=== PATIENT | female | born 1975 | race Caucasian/White ===

== ENCOUNTER 2016-12-02 16:33 | Emergency (ER) | payer OTHER ==
[~2016-12-02] VITALS: Ht 157.5 cm; Wt 77.1 kg
[2016-12-02 17:07] LABS: BASOPHIL % 0.1 % (0.0-0.2); EOSINOPHIL % 0.1 % (0.0-5.0); HEMOGLOBIN 14.3 g/dL (12.0-15.0); LYMPHOCYTES # 1.5 10^3/uL (1.0-4.8); LYMPHOCYTES % 10.7 % (24.0-44.0); MEAN CELL HGB 29.5 pg (26-34); MEAN CELL HGB CONCENTRATION 32.9 g/dL (33-37); MEAN CORP VOLUME 89.9 fL (78-100); MEAN PLATELET VOLUME 10.4 fL (7.8-11.0); MONOCYTES # 0.8 10^3/uL (0.3-0.8); MONOCYTES % 5.4 % (5.0-12.0); NEUTROPHIL # 11.5 10^3/uL (1.8-7.7); NEUTROPHILS % 83.6 % (41.0-85.0); RED CELL DISTRIBUTION WIDTH 12.9 % (11.5-14.5); WHITE BLOOD CELL 13.8 10^3/uL (4.5-11.0)
[2016-12-02] MEDS ORDERED: ZOFRAN IV STA (17:15)
[2016-12-02] MEDS ORDERED: ZOFRAN ONE (17:21)
[2016-12-02] MEDS ORDERED: NS 1000ML 1,000 ML ONE (17:21)
[2016-12-02] MEDS ORDERED: NS 1000ML 1,000 ML IV ONE (17:30)
[2016-12-02 17:32] LABS: CALCIUM 9.6 mg/dL (8.4-10.5); CARBON DIOXIDE 21.6 mmol/L (20.0-32)
[2016-12-02 18:54] LABS: BILIRUBIN,URINE NEGATIVE (NEGATIVE)
[2016-12-02 18:55] LABS: APPEARANCE,URINE SLIGHTLY HAZY (CLEAR); UA COLOR YELLOW (YELLOW)
[2016-12-02] MEDS ORDERED: PYRIDIUM PO STA (19:28)
[2016-12-02] MEDS ORDERED: BACTRIM DS PO STA (19:28)
--- NOTE | 2016-12-02 19:38 | ER.PDOC ---
General Chief Complaint: Nausea,Vomiting,Diarrhea Stated Complaint: N/V Time seen by MD: 16:45 Source: patient, family Exam Limitations: no limitations History of Present Illness Initial Comments pt has had nausea& vomiting since 3 days ago Timing/Duration: other (4 days) Severity/Quality: moderate Abdominal Pain Onset Location: Unknown Associated Symptoms (vomiting): freq vomitng Associated Symptoms (diarrhea): mild Prior symptoms/Treatment: No Similar symptoms previous, No Recenly Seen, No Treated by Doctor, No Recently Hospitalized Allergies: Coded Allergies: topiramate (Verified Allergy, Intermediate, 12/02/16) Vital Signs First Vital Signs Date Time Temp Pulse Resp B/P (MAP) Pulse Ox O2 Delivery O2 Flow Rate FiO2 12/02/16 16:42 98.0 89 18 100 12/02/16 16:45 142/83 (102) Last Vital Signs Date Time Temp Pulse Resp B/P (MAP) Pulse Ox O2 Delivery O2 Flow Rate FiO2 12/02/16 16:45 98.0 89 18 142/83 (102) 100 Past Medical History Medical History: other (seizure disorder) Surgical History: colectomy, , hysterectomy, tubal LMP (females 10-50): hysterectomy Family History Significant Family History: no pertinent family hx Social History Smoking: non-smoker Alcohol Use: rarely Drug Use: none Reviewed Nursing Reviewed: Vital Signs, Abn. Noted, Nursing Assessment Constitutional: no symptoms reported, denies see HPI, denies chills, denies diaphoresis, denies fever, denies malaise, denies weakness, denies other EENTM: denies no symptoms reported, denies see HPI, denies eye pain, denies blurred vision, denies tearing, denies double vision, denies ear pain, denies ear discharge, denies nose pain, denies nose congestion, denies throat pain, denies throat swelling, denies mouth pain, denies mouth swelling, denies other Respiratory: denies no symptoms reported, denies see HPI, denies cough, denies orthopnea, denies shortness of breath, denies SOB with exertion, denies SOB at rest, denies stridor, denies wheezing, denies other Cardiovascular: denies no symptoms reported, denies see HPI, denies chest pain , denies edema, denies irregular heart rate, denies lightheadedness, denies palpitations, denies syncope, denies other Gastrointestinal: see HPI, diarrhea Genitourinary: denies no symptoms reported, denies see HPI, denies burning, denies dysuria, denies discharge, denies frequency, denies flank pain, denies hematuria, denies incontinence, denies pain, denies urgency, denies other Musculoskeletal: denies no symptoms reported, denies see HPI, denies back pain , denies gout, denies joint pain, denies joint swelling, denies muscle pain, denies muscle stiffness, denies neck pain, denies other Skin: denies no symptoms reported, denies see HPI, denies change in color, denies change in hair/nails, denies dryness, denies lesions, denies lumps, denies rash, denies other Psychiatric/Neurological: other (seizure) Endocrine: denies no symptoms reported, denies see HPI, denies excessive sweating, denies flushing, denies intolerance to cold, denies intolerance to heat, denies increased hunger, denies increased thrist, denies increased urine, denies unexplained weight gain, denies unexplaned weight loss, denies other Hematologic/Lymphatic: denies no symptoms reported, denies see HPI, denies anemia, denies blood clots, denies easy bleeding, denies easy bruising, denies swollen glands, denies other All Other Systems: Reviewed and Negative Physical Exam General Appearance: Mild Distress HEENT: PERRL/EOMI, Normal ENT Inspection, TMs Normal, Pharynx Normal, Other ( oral mucosa dry, lips chapped) Neck: Non-Tender, Full Range of Motion, Supple, Normal Inspection Respiratory: chest non-tender, lungs clear, normal breath sounds, no respiratory distress, no accessory muscle use Cardiovascular: Normal Peripheral Pulses, Regular Rate, Rhythm, No Edema, No Gallop, No JVD, No Murmur Gastrointestinal: Normal Bowel Sounds, Non Tender, Soft Back: Normal Inspection, No CVA Tenderness, No Vertebral Tenderness Extremities: Normal Range of Motion, Non-Tender, Normal Inspection, No Pedal Edema, No Calf Tenderness, Normal Capillary Refill, Pelvis Stable 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, No Motor/Sensory Deficits, Alert, Normal Mood/Affect, Oriented x 3 Skin: Normal Color, Warm/Dry Lymphatic: No Adenopathy Results/Orders Results/Orders Laboratory Tests Test 12/02/16 16:47 12/02/16 16:56 Urine Collection Type VOID Urine Color YELLOW (YELLOW) Urine Appearance SLIGHTLY HAZY (CLEAR) Urine Bilirubin NEGATIVE MG/DL (NEGATIVE) Urine Ketones 150 mg/dL (NEGATIVE) Urine Specific [place] 1.020 (1.005-1.035) Urine pH 6 (5.0-6.0) Urine Protein 15 mg/dL (NEGATIVE) Urine Urobilinogen 1.0 (NEGATIVE) Urine Nitrate NEGATIVE (NEGATIVE) Urine Leukocyte Esterase 100/ul 1+ (NEGATIVE) Urine Blood 10 TR (NEGATIVE) Urine RBC 0-2 RBC/HPF (NONE SEEN) Urine WBC 2-5 WBC/HPF (0-2) Urine Squamous Epithelial Cells FEW #/HPF (FEW) Urine Bacteria RARE (NONE SEEN) Urine Other 4+ MUCUS #/HPF Urine Glucose NORMAL (NEGATIVE) Ketones LARGE (NEGATIVE) White Blood Count 13.8 10^3/uL (4.5-11.0) Red Blood Count 4.84 10^6/uL (4.00-5.20) Hemoglobin 14.3 g/dL (12.0-15.0) Hematocrit 43.5 % (36.0-46.0) Mean Corpuscular Volume 89.9 fL (78-100) Mean Corpuscular Hemoglobin 29.5 pg (26-34) Mean Corpuscular Hemoglobin Concent 32.9 g/dL (33-37) Red Cell Distribution Width 12.9 % (11.5-14.5) Platelet Count 283 10^3/uL (150-400) Mean Platelet Volume 10.4 fL (7.8-11.0) Neutrophils (%) (Auto) 83.6 % (41.0-85.0) Lymphocytes (%) (Auto) 10.7 % (24.0-44.0) Monocytes (%) (Auto) 5.4 % (5.0-12.0) Neutrophils # (Auto) 11.5 10^3/uL (1.8-7.7) Lymphocytes # (Auto) 1.5 10^3/uL (1.0-4.8) Monocytes # (Auto) 0.8 10^3/uL (0.3-0.8) Absolute Immature Granulocyte (auto 0.02 10^3 u/L (0-2) Eosinophils % 0.1 % (0.0-5.0) Basophils % 0.1 % (0.0-0.2) Basophils # 0.0 10^3/uL (0.0-0.1) Eosinophil Count 0.0 10^3/uL (0.0-0.2) Sodium Level 139 mmol/L (132-145) Potassium Level 3.2 mmol/L (3.6-5.2) Chloride Level 102.0 mmol/L (96-109) Carbon Dioxide Level 21.6 mmol/L (20.0-32) Anion Gap 18.6 Blood Urea Nitrogen 20 mg/dL (7-18) Creatinine 0.92 mg/dL (0.59-1.40) Estimated GFR () 81.8 (>/=60) BUN/Creatinine Ratio 21.0 Glucose Level 107 mg/dL (70-110) Calcium Level 9.6 mg/dL (8.4-10.5) Total Bilirubin 0.8 mg/dL (0.2-1.0) Aspartate Amino Transf (AST/SGOT) 15 U/L (0-35) Alanine Aminotransferase (ALT/SGPT) 21 U/L (12-78) Alkaline Phosphatase 109 U/L (50-136) Total Protein 8.2 g/dL (6.4-8.2) Albumin 4.0 g/dL (3.4-5.0) Globulin 4.2 Amylase Level 38 U/L (25-115) Lipase 95 U/L (114-286) Serum HCG, Qualitative NEGATIVE (NEGATIVE) Percent Immature Gran (Cell Imm) 0.10 % (0.00-0.50) Administered Medications Medications (Trade) Dose Ordered Sig/Shelbi Route PRN Reason Start Time Stop Time Status Last Admin Dose Admin Ondansetron HCl (Zofran) 4 mg STAT STAT IV 12/02/16 17:15 12/02/16 17:16 DC 12/02/16 17:29 Sodium Chloride 0 ml @ 999 mls/hr Q0M ONCE IV 12/02/16 17:30 12/02/16 17:31 DC 12/02/16 17:29 Progress Progress discussed labs, has uti will start Bactrim, pyridium Departure Time of Disposition: 19:42 Disposition: 01 HOME, SELF-CARE Impression: Primary Impression: Urinary tract infection Qualified Codes: N30.00 - Acute cystitis without hematuria Condition: Improved Referrals: PCP,UNKNOWN (PCP) PRIMARY CARE PROVIDER EMMETT CISSE MD Dec 02, 2016 19:38
[2016-12-02] MEDS ORDERED: PYRIDIUM PO ONE (19:44)
[2016-12-02] MEDS ORDERED: BACTRIM DS ONE (19:44)
--- NOTE | 2016-12-02 19:55 | NUR ---
IV DC'D TIP INTACT, NO BLEEDING
[2016-12-02 19:59] VITALS: BP 142/83
[2016-12-03] MEDS ORDERED: NS 1000ML 1,000 ML IV ONE (17:14)
== END 2016-12-02 19:56 | disposition home or self-care (01) ==
LOC: ER 16:33
DX: N39.0 Urinary tract infection, site not specified (principal); G40.909 Epilepsy, unspecified, not intractable, without status epilepticus; R19.7 Diarrhea, unspecified; R11.10 Vomiting, unspecified; Z88.8 Allergy status to other drugs, medicaments and biological substances; Z90.49 Acquired absence of other specified parts of digestive tract
CPT/HCPCS: 36415; 80053; 81000; 82150; 83690; 84703; 85025; 87086; 96361; 96374; 99285; J2405; J7030

== ENCOUNTER 2016-12-04 21:54 | Emergency (ER) | payer OTHER ==
[~2016-12-04] VITALS: Ht 165.1 cm; Wt 77.1 kg
--- NOTE | 2016-12-04 23:52 | ER.PDOC ---
General Chief Complaint: Flank Pain Stated Complaint: UTI ISSUE Time seen by MD: 23:49 Source: patient Exam Limitations: no limitations History of Present Illness Initial Comments Bilateral flank pain, nausea/vomiting for 5 days. Seen in the ED 3 days ago. Severity/Quality: moderate Radiation: no radiation Associated Symptoms: nausea/vomiting Exacerbated by: nothing Relieved By: nothing Allergies: Coded Allergies: topiramate (Verified Allergy, Intermediate, 12/02/16) Vital Signs First Vital Signs Date Time Temp Pulse Resp B/P (MAP) Pulse Ox O2 Delivery O2 Flow Rate FiO2 12/04/16 22:47 98.1 77 16 98 Last Vital Signs Date Time Temp Pulse Resp B/P (MAP) Pulse Ox O2 Delivery O2 Flow Rate FiO2 12/04/16 22:47 98.1 77 16 98 Past Medical History Medical History: GERD, thyroid disease Surgical History: cholecystectomy, hysterectomy, tubal LMP (females 10-50): hysterectomy Social History Smoking: non-smoker Alcohol Use: none Drug Use: none Constitutional: no symptoms reported Respiratory: no symptoms reported Cardiovascular: no symptoms reported Gastrointestinal: see HPI Genitourinary: see HPI Musculoskeletal: no symptoms reported All Other Systems: Reviewed and Negative Physical Exam General Appearance: No Apparent Distress Neck: Non-Tender, Full Range of Motion, Supple, Normal Inspection Respiratory: chest non-tender, lungs clear, normal breath sounds, no respiratory distress, no accessory muscle use Cardiovascular: Normal Peripheral Pulses, Regular Rate, Rhythm, No Edema, No Gallop, No JVD, No Murmur Gastrointestinal: Normal Bowel Sounds, No Organomegaly, No Pulsatile Mass, Tenderness (Lower abdomen) Back: CVA Tenderness (R), CVA Tenderness (L) Extremities: Normal Range of Motion, Non-Tender, Normal Inspection, No Pedal Edema, No Calf Tenderness, Normal Capillary Refill, Pelvis Stable 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 EKG/XRAY/CT/US CT Comments: Cystic enlargement of right adnexa, nothing acute Course Blood Pressure Systolic: 148 Blood Pressure Diastolic: 67 Blood Pressure Mean: 94 Departure Time of Disposition: :16 Disposition: 01 HOME, SELF-CARE Impression: Primary Impression: UTI (urinary tract infection) Additional Impressions: Gastroenteritis Hypokalemia Condition: Stable Referrals: PCP,UNKNOWN (PCP) PRIMARY CARE PROVIDER Additional Instructions: KCL tabs Nitrofurantoin Continue Zofran at home Start feeding with clear liquids and advance diet as tolerated F/U with your PCP in 2-3 days Problem Qualifiers Primary Impression: UTI (urinary tract infection) Urinary tract infection type: site unspecified Hematuria presence: without hematuria Qualified Codes: N39.0 - Urinary tract infection, site not specified ADELSO ALFARO MD Dec 04, 2016 23:52
[2016-12-04 23:58] LABS: BASOPHIL % 0.4 % (0.0-0.2); EOSINOPHIL # 0.1 10^3/uL (0.0-0.2); EOSINOPHIL % 1.3 % (0.0-5.0); HEMOGLOBIN 13.6 g/dL (12.0-15.0); LYMPHOCYTES # 2.1 10^3/uL (1.0-4.8); LYMPHOCYTES % 22.1 % (24.0-44.0); MEAN CELL HGB CONCENTRATION 33.5 g/dL (33-37); MEAN CORP VOLUME 89.6 fL (78-100); MEAN PLATELET VOLUME 10.4 fL (7.8-11.0); MONOCYTES # 0.9 10^3/uL (0.3-0.8); MONOCYTES % 9.8 % (5.0-12.0); NEUTROPHIL # 6.2 10^3/uL (1.8-7.7); NEUTROPHILS % 66.3 % (41.0-85.0); RED CELL DISTRIBUTION WIDTH 12.9 % (11.5-14.5); WHITE BLOOD CELL 9.3 10^3/uL (4.5-11.0)
[2016-12-05 00:14] LABS: CALCIUM 9.5 mg/dL (8.4-10.5); CARBON DIOXIDE 22.7 mmol/L (20.0-32)
[2016-12-05 00:23] LABS: BILIRUBIN,URINE 6 MG/DL (NEGATIVE)
[2016-12-05 00:48] LABS: APPEARANCE,URINE SLIGHTLY CLOUDY (CLEAR); UA COLOR ORANGE (YELLOW)
--- NOTE | 2016-12-05 00:49 | DIREP ---
PROCEDURE:CT ABDOMEN/PELVIS W/O CONTRAST COMPARISON:None. INDICATIONS:BLQ AND FLANK PAIN, NO HX STONES TECHNIQUE:Axial images were created through the abdomen and pelvis without intravenous contrast material. No oral contrast was administered. Sagittal and coronal reconstructions were performed from source images. The study was reviewed on abdominal, lung, liver and bone windows. FINDINGS: LUNG BASES:Normal. No visible pulmonary or pleural disease. LIVER:Normal. No significant liver lesions are identified. BILIARY:Status post cholecystectomy. PANCREAS:Normal. No lesion, fluid collection, ductal dilatation, or atrophy. SPLEEN:Normal. No enlargement or focal lesion. ADRENALS:Normal. No mass or enlargement. URINARY TRACT:No radiopaque stones are seen. Slightly increased density of the calices identified, question [id number]/nephrocalcinosis. No bulmaro lesions are identified. No hydronephrosis is seen. AORTA/VASCULAR:Normal. No aneurysm. RETROPERITONEUM:Normal. No mass or adenopathy. BOWEL/MESENTERY:Normal. There is no intestinal obstruction, free fluid, free air or mesenteric inflammatory changes. The appendix is questionably visualized on images number 76 through 83. The appendix is also visualized on coronal image number 45 series 8031. No acute appendicitis, diverticulitis, free air or free fluid is seen. Significant retained fecal matter in the colon. Calcium containing medications identified in the distal stomach as seen on image number 28, series 2. ABDOMINAL WALL:Normal. No mass or hernia. PELVIC ORGANS:Cystic enlargement of the right adnexa measuring 3.6 x 2.6 cm in size. Left adnexa is satisfactory, measuring 2.5 x 1.3 cm in size, recommend a follow-up pelvic sonogram. Phleboliths in the pelvis. BONES:Normal for age. No bony lesion or acute fracture. OTHER:Negative. CONCLUSION:No acute appendicitis, diverticulitis is seen. Status post cholecystectomy. Cystic enlargement of the right adnexa, dimensions as above. Recommend a follow-up pelvic sonogram. No renal stones or hydronephrosis is seen. Dictated by: Ulices Lee MD on 12/05/2016 at 00:45 AM
[2016-12-05] MEDS ORDERED: KLOR-CON 10 PO STA (01:13)
[2016-12-05] MEDS ORDERED: ROCEPHIN IM IM STA (01:13)
[2016-12-05] MEDS ORDERED: KLOR-CON 10 PO ONE (01:15)
[2016-12-05] MEDS ORDERED: ROCEPHIN ONE (01:15)
[2016-12-05 01:41] VITALS: BP 139/82
== END 2016-12-05 01:40 | disposition home or self-care (01) ==
LOC: ER 21:54
DX: N39.0 Urinary tract infection, site not specified (principal); K52.9 Noninfective gastroenteritis and colitis, unspecified; E87.6 Hypokalemia; E07.9 Disorder of thyroid, unspecified; K21.9 Gastro-esophageal reflux disease without esophagitis; Z88.8 Allergy status to other drugs, medicaments and biological substances
CPT/HCPCS: 36415; 74176; 80053; 81000; 83690; 85025; 87086; 96372; 99285; J0696; J3480

== ENCOUNTER 2017-02-05 16:07 | Emergency (ER) | payer OTHER ==
[~2017-02-05] VITALS: Ht 165.1 cm; Wt 81.6 kg
[2017-02-05] MEDS ORDERED: NEURONTIN PO STA (17:00)
[2017-02-05] MEDS ORDERED: ZOFRAN ODT SL STA (17:00)
[2017-02-05] MEDS ORDERED: NS 1000ML 1,000 ML IV ONE (17:00)
[2017-02-05 17:35] LABS: BASOPHIL % 0.2 % (0.0-0.2); EOSINOPHIL % 0.4 % (0.0-5.0); HEMOGLOBIN 13.9 g/dL (12.0-15.0); LYMPHOCYTES % 20.8 % (24.0-44.0); MEAN CELL HGB 29.1 pg (26-34); MEAN CELL HGB CONCENTRATION 33.7 g/dL (33-37); MEAN CORP VOLUME 86.6 fL (78-100); MEAN PLATELET VOLUME 10.6 fL (7.8-11.0); MONOCYTES # 0.7 10^3/uL (0.3-0.8); MONOCYTES % 7.6 % (5.0-12.0); NEUTROPHIL # 6.8 10^3/uL (1.8-7.7); NEUTROPHILS % 70.9 % (41.0-85.0); RED CELL DISTRIBUTION WIDTH 12.5 % (11.5-14.5); WHITE BLOOD CELL 9.7 10^3/uL (4.5-11.0)
[2017-02-05] MEDS ORDERED: NS 1000ML 1,000 ML ONE (17:35)
[2017-02-05] MEDS ORDERED: NEURONTIN ONE (17:36)
[2017-02-05] MEDS ORDERED: ZOFRAN ODT ONE (17:36)
[2017-02-05 17:41] LABS: CALCIUM 9.5 mg/dL (8.4-10.5); CARBON DIOXIDE 20.1 mmol/L (20.0-32)
[2017-02-05 19:15] LABS: BILIRUBIN,URINE NEGATIVE (NEGATIVE); UROBILINOGEN,URINE NORMAL (NEGATIVE)
[2017-02-05 19:23] LABS: APPEARANCE,URINE CLOUDY (CLEAR); UA COLOR YELLOW (YELLOW)
[2017-02-05] MEDS ORDERED: CIPRO ONE ×2 (19:29→19:30)
[2017-02-05 19:30] LABS: YEAST,URINE RARE
--- NOTE | 2017-02-05 19:31 | ER.PDOC ---
General Chief Complaint: Abdomen Pain Stated Complaint: AB PAIN,NAUSEA,VOMIT,DIARRHEA Time seen by MD: 17:16 Source: patient History of Present Illness Initial Comments pt has developed nausea and vomiting and has not been able to keep meds down, has hx of epilepsy and suffered 2 seizures. Timing/Duration: 24 hours Severity/Quality: moderate Radiation: no radiation Associated Symptoms: fever/chills, nausea/vomiting Exacerbated by: deep breaths Allergies: Coded Allergies: topiramate (Verified Allergy, Intermediate, 12/02/16) Vital Signs First Vital Signs Date Time Temp Pulse Resp B/P (MAP) Pulse Ox O2 Delivery O2 Flow Rate FiO2 02/05/17 16:47 98.6 145 18 97 02/05/17 16:53 153/86 (108) Last Vital Signs Date Time Temp Pulse Resp B/P (MAP) Pulse Ox O2 Delivery O2 Flow Rate FiO2 02/05/17 16:53 98.6 145 18 153/86 (108) 97 Past Medical History Medical History: other (epilepsy) Surgical History: cholecystectomy, , other LMP (females 10-50): hysterectomy Social History Smoking: non-smoker Alcohol Use: none Drug Use: none Reviewed Nursing Reviewed: Vital Signs, Abn. Noted, Nursing Assessment Physical Exam General Appearance: Moderate Distress HEENT: PERRL/EOMI, Normal ENT Inspection, TMs Normal, Pharynx Normal Neck: Non-Tender, Full Range of Motion, Supple, Normal Inspection Respiratory: chest non-tender, lungs clear, normal breath sounds, no respiratory distress, no accessory muscle use Cardiovascular: Normal Peripheral Pulses, Regular Rate, Rhythm, No Edema, No Gallop, No JVD, No Murmur Gastrointestinal: Normal Bowel Sounds, Non Tender, Soft Rectal: Normal Exam Back: Normal Inspection, No CVA Tenderness, No Vertebral Tenderness Extremities: Normal Range of Motion, Non-Tender, Normal Inspection, No Pedal Edema, No Calf Tenderness, Normal Capillary Refill, Pelvis Stable 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, No Motor/Sensory Deficits, Alert, Normal Mood/Affect, Oriented x 3 Skin: Normal Color, Warm/Dry Lymphatic: No Adenopathy Results/Orders Results/Orders Laboratory Tests Test 02/05/17 17:16 White Blood Count 9.7 10^3/uL (4.5-11.0) Red Blood Count 4.77 10^6/uL (4.00-5.20) Hemoglobin 13.9 g/dL (12.0-15.0) Hematocrit 41.3 % (36.0-46.0) Mean Corpuscular Volume 86.6 fL (78-100) Mean Corpuscular Hemoglobin 29.1 pg (26-34) Mean Corpuscular Hemoglobin Concent 33.7 g/dL (33-37) Red Cell Distribution Width 12.5 % (11.5-14.5) Platelet Count 302 10^3/uL (150-400) Mean Platelet Volume 10.6 fL (7.8-11.0) Neutrophils (%) (Auto) 70.9 % (41.0-85.0) Lymphocytes (%) (Auto) 20.8 % (24.0-44.0) Monocytes (%) (Auto) 7.6 % (5.0-12.0) Neutrophils # (Auto) 6.8 10^3/uL (1.8-7.7) Lymphocytes # (Auto) 2.0 10^3/uL (1.0-4.8) Monocytes # (Auto) 0.7 10^3/uL (0.3-0.8) Absolute Immature Granulocyte (auto 0.01 10^3 u/L (0-2) Eosinophils % 0.4 % (0.0-5.0) Basophils % 0.2 % (0.0-0.2) Basophils # 0.0 10^3/uL (0.0-0.1) Eosinophil Count 0.0 10^3/uL (0.0-0.2) Sodium Level 139 mmol/L (132-145) Potassium Level 2.9 mmol/L (3.6-5.2) Chloride Level 104.0 mmol/L (96-109) Carbon Dioxide Level 20.1 mmol/L (20.0-32) Anion Gap 17.8 Blood Urea Nitrogen 20 mg/dL (7-18) Creatinine 0.94 mg/dL (0.59-1.40) Estimated GFR () 79.8 (>/=60) BUN/Creatinine Ratio 21.0 Glucose Level 157 mg/dL (70-110) Calcium Level 9.5 mg/dL (8.4-10.5) Total Bilirubin 0.7 mg/dL (0.2-1.0) Aspartate Amino Transf (AST/SGOT) 14 U/L (0-35) Alanine Aminotransferase (ALT/SGPT) 20 U/L (12-78) Alkaline Phosphatase 108 U/L (50-136) Total Protein 8.2 g/dL (6.4-8.2) Albumin 4.2 g/dL (3.4-5.0) Globulin 4.0 Amylase Level 36 U/L (25-115) Percent Immature Gran (Cell Imm) 0.10 % (0.00-0.50) Administered Medications Medications (Trade) Dose Ordered Sig/Shelbi Route PRN Reason Start Time Stop Time Status Last Admin Dose Admin Ondansetron HCl (Zofran Odt) 4 mg STAT STAT SL 02/05/17 17:00 02/05/17 17:04 DC 02/05/17 17:36 Gabapentin (Neurontin) 300 mg STAT STAT PO 02/05/17 17:00 02/05/17 17:04 DC 02/05/17 17:36 Sodium Chloride 1,000 ml @ 999 mls/hr Q1H1M ONCE IV 02/05/17 17:00 02/05/17 18:00 DC 02/05/17 17:47 Course Blood Pressure Systolic: 153 Blood Pressure Diastolic: 86 Blood Pressure Mean: 108 Departure Time of Disposition: 19:32 Disposition: 01 HOME, SELF-CARE Impression: Primary Impression: Urinary tract infection Condition: Stable Referrals: PCP,UNKNOWN (PCP) PRIMARY CARE PROVIDER Problem Qualifiers Primary Impression: Urinary tract infection Urinary tract infection type: site unspecified Hematuria presence: without hematuria Qualified Codes: N39.0 - Urinary tract infection, site not specified EMMETT CISSE MD Feb 05, 2017 19:31
[2017-02-05] MEDS ORDERED: CIPRO PO STA (19:38)
[2017-02-05 20:01] VITALS: BP 163/99
== END 2017-02-05 19:50 | disposition home or self-care (01) ==
LOC: ER 16:07
DX: N39.0 Urinary tract infection, site not specified (principal); G40.909 Epilepsy, unspecified, not intractable, without status epilepticus; R11.2 Nausea with vomiting, unspecified; Z88.8 Allergy status to other drugs, medicaments and biological substances
CPT/HCPCS: 36415; 80053; 81000; 82150; 85025; 87086; 96360; 96361; 99285; J7030; Q0162